=== PATIENT | male | born 1995 | race Caucasian/White ===

== ENCOUNTER → 2017-12-24 | Outpatient (CLI) | payer SELFPAY | LOC: M LRY 15:15 | DX: S69.91XA Unspecified injury of right wrist, hand and finger(s), initial encounter (principal); W18.30XA Fall on same level, unspecified, initial encounter; Y92.009 Unspecified place in unspecified non-institutional (private) residence as the place of occurrence of the external cause ==

== ENCOUNTER 2019-04-24 20:43 | Inpatient (IN) | payer OTHER, SELFPAY ==
[~2019-04-24] VITALS: Ht 172.7 cm; Wt 66.2 kg
[2019-04-24] MEDS ORDERED: LORazepam 2 MG TAB PO STA (20:57)
[2019-04-24 21:21] LABS: HEMATOCRIT 49.3 % (42.0-52.0); MEAN CORPUSCULAR HEMOGLOBIN 31.1 pg (27.0-33.0); MEAN CORPUSCULAR HGB CONC 34.5 g/dl (32.0-36.5); MEAN CORPUSCULAR VOLUME 90.3 fl (80.0-96.0); PLATELET COUNT, AUTOMATED 188 10^3/uL (150-450); RED BLOOD COUNT 5.46 10^6/uL (4.30-6.10); WHITE BLOOD COUNT 7.9 10^3/uL (4.0-10.0)
[2019-04-24 21:41] LABS: AMPHETAMINES LEVEL URINE NEGATIVE (NEGATIVE); BARBITURATES URINE NEGATIVE (NEGATIVE); BENZODIAZEPINES URINE NEGATIVE (NEGATIVE); CANNABINOIDS URINE POSITIVE (NEGATIVE); COCAINE METABOLITE URINE NEGATIVE (NEGATIVE); METHADONE URINE NEGATIVE (NEGATIVE); OPIATES URINE NEGATIVE (NEGATIVE); PHENCYCLIDINE URINE NEGATIVE (NEGATIVE)
[2019-04-24 22:02] LABS: ACETAMINOPHEN LEVEL < 2.0 UG/ML (10.0-30.0); ALBUMIN 4.2 GM/DL (3.2-5.2); ALT/SGPT 21 U/L (12-78); BILIRUBIN,DIRECT 0.1 MG/DL (0.0-0.2); BILIRUBIN,TOTAL 0.4 MG/DL (0.2-1.0); BLOOD UREA NITROGEN 11 MG/DL (7-18); CALCIUM LEVEL 8.7 MG/DL (8.5-10.1); CARBON DIOXIDE LEVEL 25 MEQ/L (21-32); CHLORIDE LEVEL 110 MEQ/L (98-107); CREATININE FOR GFR 0.94 MG/DL (0.70-1.30); ETHYL ALCOHOL (ETHANOL) < 0.003 % (0.000-0.010); GLOMERULAR FILTRATION RATE > 60.0 (>60); GLUCOSE, FASTING 97 MG/DL (70-100); POTASSIUM SERUM 3.3 MEQ/L (3.5-5.1); SALICYLATE LEVEL < 1.7 MG/DL (5.0-30.0); SODIUM LEVEL 143 MEQ/L (136-145); TOTAL PROTEIN 7.8 GM/DL (6.4-8.2)
[2019-04-25] MEDS ORDERED: LORazepam 2 MG TAB PO STA (01:31)
[2019-04-25] MEDS ORDERED: LORazepam 2 MG/ML VIAL (J2060) As Ordered ONE (01:35)
[2019-04-25] MEDS ORDERED: HALOPERIDOL 5 MG/ML VIAL (J1630) As Ordered ONE (01:35)
[2019-04-25] MEDS ORDERED: diphenhydrAMINE INJ 50MG/ML VIAL (J1200) As Ordered ONE (01:35)
[2019-04-25] MEDS ORDERED: HALOPERIDOL 5 MG/ML VIAL (J1630) IM ONE (01:45)
[2019-04-25] MEDS ORDERED: LORazepam 2 MG/ML VIAL (J2060) IM ONE (01:45)
[2019-04-25] MEDS ORDERED: diphenhydrAMINE INJ 50MG/ML VIAL (J1200) IM ONE (01:45)
[2019-04-25] MEDS ORDERED: ACETAMINOPHEN TAB 650MG DOSE (2X325MG) PO PRN (12:15)
[2019-04-25] MEDS ORDERED: MOM 30ML SUSPENSION UDC PO PRN (12:15)
[2019-04-25] MEDS ORDERED: traZODone 50 MG TAB PO PRN (12:15)
[2019-04-25] MEDS ORDERED: MAALOX 30 ML SUSP *UDC PO PRN (12:15)
[2019-04-25 13:30] VITALS: BP 106/62
[2019-04-25 18:00] VITALS: BP 107/66
[2019-04-26 06:32] VITALS: BP 137/73
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
[2019-04-26] MEDS: NICOTINE 21MG/24HR 1 EA TRANSDERMAL TD SCH (13:11)
[2019-04-26] MEDS: hydrOXYzine 50 MG TAB PO PRN (15:35)
[2019-04-26] MEDS: GABAPENTIN 100 MG CAP PO SCH ×2 (15:50→20:15)
[2019-04-26] MEDS: SERTRALINE HCL 50 MG TAB PO SCH (15:50)
[2019-04-26 18:04] VITALS: BP 128/81
[2019-04-26] MEDS: QUEtiapine FUMARATE 50 MG TAB PO SCH (20:15)
[2019-04-27 06:42] VITALS: BP 112/64
[2019-04-27] MEDS: GABAPENTIN 100 MG CAP PO SCH ×3 (08:11→20:06)
[2019-04-27] MEDS: hydrOXYzine 50 MG TAB PO PRN ×3 (08:11→16:04)
[2019-04-27] MEDS: SERTRALINE HCL 50 MG TAB PO SCH (08:11)
[2019-04-27] MEDS: NICOTINE 21MG/24HR 1 EA TRANSDERMAL TD SCH (08:12)
[2019-04-27 18:05] VITALS: BP 126/91
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
[2019-04-27] MEDS: QUEtiapine FUMARATE 50 MG TAB PO SCH (20:06)
[2019-04-28 06:47] VITALS: BP 139/78
[2019-04-28] MEDS: GABAPENTIN 100 MG CAP PO SCH ×3 (08:09→20:22)
[2019-04-28] MEDS: SERTRALINE HCL 50 MG TAB PO SCH (08:09)
[2019-04-28] MEDS: NICOTINE 21MG/24HR 1 EA TRANSDERMAL TD SCH (08:10)
[2019-04-28] MEDS: hydrOXYzine 50 MG TAB PO PRN (08:53)
[2019-04-28] MEDS ORDERED: hydrOXYzine 25 MG TAB PO PRN (12:00)
[2019-04-28] MEDS ORDERED: SERTRALINE HCL 25 MG TABLET PO ONE (12:00)
[2019-04-28 18:06] VITALS: BP 140/86
[2019-04-28] MEDS: QUEtiapine FUMARATE 25 MG TAB PO SCH (20:23)
[2019-04-28] MEDS ORDERED: QUEtiapine FUMARATE 25 MG TAB PO SCH (21:00)
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
[2019-04-29 06:41] VITALS: BP 120/70
[2019-04-29] MEDS: QUEtiapine FUMARATE 25 MG TAB PO SCH (08:11)
[2019-04-29] MEDS: GABAPENTIN 100 MG CAP PO SCH (08:12)
[2019-04-29] MEDS: NICOTINE 21MG/24HR 1 EA TRANSDERMAL TD SCH (08:13)
[2019-04-29] MEDS ORDERED: SERTRALINE HCL 25 MG TABLET PO SCH (09:00)
[2019-04-29] MEDS ORDERED: SERTRALINE HCL 50 MG TAB PO SCH (09:00)
[2019-04-29] MEDS ORDERED: QUET1TAB7 PO (13:08)
[2019-04-29] MEDS ORDERED: GABA-1171 PO ×2 (13:08→13:44)
[2019-04-29] MEDS ORDERED: SERT-155 PO (13:08)
--- NOTE | 2019-04-30 14:57 | MHDSPDOC ---
[facility] Discharge Summary Discharge Summary DATE OF ADMISSION: Apr 25, 2019 at 12:11 DATE OF DISCHARGE: Apr 29, 2019 at 14:30 DISCHARGE DIAGNOSES: 1. Major depression. 2. Or stressors. REASON FOR ADMISSION:. Suicidal messages sent to uncle CONSULTANTS INVOLVED: None TREATMENT AND PROGRESS ON THE UNIT : Treated by Dr Berger with medication and counseling HOSPITAL COURSE: Mood improved DISCHARGE ASSESSMENT:. Major depression MENTAL STATUS EXAMINATION ON DISCHARGE: Patient is a, 23-year old male, who is in improved mood and returning home to take care of child. Speech is normal. Language skills are. Normal. Thought processes including:. No gross disturbances. Thought content:. No gross disturbances. Abstract reasoning, and computation: Able to abstract. Description of associations:. No loose associations. Description of abnormal or psychotic thoughts:. No psychotic thoughts. Judgment: Improve. Insight: Improved. Orientation to. Oriented 3. Recent and remote memory:. Intact. Attention span and concentration: Intact. Language: Intact. Fund of knowledge: Full. Mood:, Good. Affect:, Bright. MEDICATIONS ON DISCHARGE: -As per Dr. Berger PLAN/FOLLOWUP ARRANGEMENTS: As per discharge team. The amount of time spent in the coordination of care for this patient was approximately 45 minutes. Vital Signs/I&Os Vital Signs Date Time Temp Pulse Resp B/P (MAP) Pulse Ox O2 Delivery O2 Flow Rate FiO2 04/29/19 06:41 97.4 83 16 120/70 (87) 04/25/19 13:45 97 Room Air Medications Scheduled Gabapentin (Gabapentin) 100 Mg Capsule, 200 MG PO TID for Mood for 10 Days, #60 Quetiapine Fumarate (Quetiapine Fumarate) 25 Mg Tablet, 75 MG PO BID for Anxiety for 10 Days, #60 Sertraline HCl (Sertraline HCl) 50 Mg Tablet, 50 MG PO DAILY for Depression for 10 Days, #10 Allergies Coded Allergies: No Known Allergies (Unverified , 04/24/19) MIKY TATUM MD Apr 30, 2019 14:57
== END 2019-04-29 14:30 | disposition home or self-care (01) | DRG 754 ==
LOC: M ED 20:43 → M ED INP 04-25 12:11 → M PSY 04-25 14:10
PROVIDERS: ADMIT Psychiatry & Neurology Psychiatry; ATTEND Psychiatry & Neurology Child & Adolescent Psychiatry
DX: F32.9 Major depressive disorder, single episode, unspecified (principal); F41.1 Generalized anxiety disorder; F12.10 Cannabis abuse, uncomplicated; F17.210 Nicotine dependence, cigarettes, uncomplicated; F17.290 Nicotine dependence, other tobacco product, uncomplicated; Z59.9 Problem related to housing and economic circumstances, unspecified; Z56.0 Unemployment, unspecified; Z81.1 Family history of alcohol abuse and dependence; Z81.8 Family history of other mental and behavioral disorders